=== PATIENT | male | born 1955 | race Caucasian/White ===

== ENCOUNTER 2019-01-31 06:40 | Observation (INO) | payer OTHER ==
[~2019-01-31] VITALS: Ht 172.7 cm; Wt 86.2 kg
--- NOTE | ~2019-01-31 | D ---
[facility] [address] [address] DISCHARGE SUMMARY Name: SHERYL CUNNINGHAM Room #: 215-P [facility] M.R.#: [id number] Admission: 01/31/19 Attend Phys: Serjio Chambers MD Discharge: Date of : 57 Report #: [id number] THIS REPORT FOR: //name// CC: FAM unknown [facility] SUMMARY: The patient is a 63-year-old male who was admitted yesterday for a second attempt an AVNRT ablation. Initially, it was attempted in December 2017. It has been recurrence of his dysrhythmia. Dr. Chambers, the Electrophysiology Service performed. He was unsuccessful in completely ablating this pathway. The patient is in sinus rhythm today with a rate in the 80s. He is voicing no complaints. The recommendation is to start on flecainide 100 b.i.d. I will add 25 mg of Toprol in addition to his atorvastatin and his benazepril. No lifting for 48 hours. No lying in a tub, Jacuzzi for 5 days. He has no complaints. I have discussed this discharge with him and his . DISCHARGE DIAGNOSES: 1. Recurrent AVNRT/SVT with status post attempt, but failed ablation. 2. Hypertension. 3. Hypercholesterolemia. Thank you for assist in the care of this patient. Followup will be scheduled with Dr. Rodarte who is patient's primary mechanical maintenance foreman in 2 weeks. Thank you for allowing us to participate in the care of this patient. By: [id number] /nt
[~2019-01-31 06:40] MED LIST: ASPIRIN325 PO; BENAZEPRIL HCL40 MG PO; LIPITOR 20 MG T20 M1 PO
[2019-01-31 07:02] VITALS: BP 135/65
[2019-01-31 07:14] LABS: ABSOLUTE NEUTROPHILS 3.1 thou/uL (1.4-8.2); BASOPHILS 1.3 % (0.0-2.0); EOSINOPHILS 4.1 % (0.0-3.0); HEMATOCRIT 46.2 % (42.0-52.0); HEMOGLOBIN 15.8 gm/dL (14.0-18.0); LYMPHOCYTES 30.1 % (24.0-44.0); MCH 30.6 pg (26.0-34.0); MCHC 34.2 g/dL (28.0-37.0); MCV 89.4 fL (80.0-100.0); MONOCYTES 11.6 % (1.0-8.0); PLATELET COUNT 254 thou/uL (150-400); POLYS 52.9 % (36.0-66.0); RBC 5.17 mil/uL (4.50-6.00); RDW 12.7 % (10.5-14.5); WBC 5.8 thou/uL (4.0-11.0)
[2019-01-31 07:22] LABS: CALCIUM 9.3 mg/dL (8.5-10.1); POTASSIUM 4.2 mmol/L (3.5-5.1)
[2019-01-31 07:27] LABS: APTT 29.9 Seconds (24.5-32.8); PROTIME 10.8 Seconds (9.3-11.4)
[2019-01-31 07:28] LABS: ALBUMIN 3.7 g/dL (3.4-5.0); TOTAL BILIRUBIN 0.5 mg/dL (<0.1-1.0); TOTAL PROTEIN 6.9 g/dL (6.4-8.2)
[2019-01-31 16:12] VITALS: BP 122/78
--- NOTE | 2019-01-31 18:02 | NUR ---
PT ARRIVED TO UNIT AT APPROX 1540 BY PACU STAFF ACCOMPANIED BY SPOUSE. PT ALERT AND ORIENTED, VSS, DENIES PAIN. O2 SATS WNL ON ROOM AIR, RIGHT AND LEFT GROIN SITES CDI, NO HEMATOMAS. PT REMAINS BEDREST PER ORDERS. PT SEEN BY DR RIVERA. ADMISSION COMPLETE, TELEMETRY SHEET DISCUSSED WITH PT AND SIGNED. COMMUNICATES UNDERSTANDING. TELE PUT ON, ADMISSION STRIP PRINTED. GROIN SITES REMAIN CDI, NO HEMATOMA. CONTINUING TO MONITOR.
[2019-01-31 19:57] VITALS: BP 127/68
[2019-02-01 00:55] VITALS: BP 117/97
[2019-02-01 04:45] VITALS: BP 146/77
--- NOTE | 2019-02-01 05:42 | NUR ---
ASSUMED PT CARE AT 1900. VSS/ PT A&0X4. PT IS STABLE, BOTH GROIN SITE IS CDI. PT SLEPT FOR MOST OF THE NIGHT. NO COMPLAINTS OF PAIN OR DISCOMFORT. SR WITH 1D ON THE MONITOR. PT IS STEADY ON HIS FEET. WILL CONTINUE TO MONITOR PER POC.
[2019-02-01 08:00] VITALS: BP 145/72
[2019-02-01] MEDS ORDERED: TAMBOCOR 100 M100 M1 PO (08:29)
[2019-02-01] MEDS ORDERED: TOPROL XL25 MG PO (08:37)
[2019-02-01 09:05] VITALS: BP 145/72
[2019-02-01 09:22] VITALS: BP 145/72
--- NOTE | 2019-02-01 09:45 | NUR ---
PT CARE ASSUMED APPROX 0700. ASSESSMENT CHARTED. DENIES PAIN AND SOA. VSS. SANJAY GROIN SITES C/D/I. DISCHARGE EDUCATION AND PAPERWORK REVIEWED WITH PT AND SPOUSE. BOTH DENY QUESTIONS OR CONCERNS REGARDING POST HOSPITAL CARE AND EDUCATION. IV OUT, TELE BOX OFF. NURSE ESCORTED PT OUT VIA WHEELCHAIR WITHOUT ISSUE.
--- NOTE | 2019-02-20 12:29 | P ---
[facility] [place] [address] [place] [address] PROCEDURE REPORT Name: SHERYL CUNNINGHAM Room #: 215-P [facility] M.R.#: [id number] Admission: 01/31/19 Attend Phys: Serjio Chambers MD Discharge: 02/01/19 Date of : 57 Report #: [id number] THIS REPORT FOR: //name// CC: FAM unknown Serjio Chambers DATE OF SERVICE: 01/31/2019 PREOPERATIVE DIAGNOSIS: Atrioventricular stefan reentry tachycardia. POSTOPERATIVE DIAGNOSIS: Atrioventricular stefan reentry tachycardia. PROCEDURES PERFORMED: 1. SVT ablation, CPT code 08194. 2. EP with left atrial pacing and recording, CPT code 73841. 3. Program and stimulation pacing after IV drug infusion, CPT code 38487. 4. 3D mapping, CPT code 59907. HISTORY: The patient is a 63-year-old gentleman with a history of SVT, who underwent ablation of typical AV stefan reentrant tachycardia back in 12/2017. At that time, he had AVNRT, SVT with evidence of a VAHV response consistent with typical AV stefan reentrant tachycardia. A total of 4 ablation lesions were performed with the last two lesions demonstrating nice slow junctionals. He recently was in the Emergency Room with recurrent SVT and has recurrent SVT documented on a surveillance system monitor. He is here for repeat ablation. ANESTHESIA: The patient underwent MAC anesthesia with no anesthesia related complications. DESCRIPTION OF PROCEDURE: The patient underwent informed consent. We discussed the details of the procedure including the risks, which include but not limited to bleeding, vascular damage, cardiac perforation, stroke, [place] as well as damage to the poarch conduction system requiring permanent pacemaker. He understood these risks and is willing to proceed. The patient was brought to the EP laboratory in fasting and sedated state, prepped and draped in a sterile fashion. I injected lidocaine at the bilateral groin regions and obtained access to bilateral femoral veins placing an 8 and 6-Burkinan short sheath in the right femoral vein and a 6 and 7-Burkinan short sheath in the left femoral vein. At baseline, the patient was in sinus rhythm with sinus cycle length 930 milliseconds, MN interval 210 milliseconds, QRS duration 90 milliseconds, QT interval 400 milliseconds, AH interval 148 milliseconds, and HV interval 40 milliseconds. Next, atrial pacing was performed and there was evidence of a long AH interval suggestive that there was still a slow pathway. AV block was noted at 400 milliseconds. Next, single atrial extrastimuli were delivered and atrial ERP was noted at 310 milliseconds [facility] [address] [place] [address] PROCEDURE REPORT Name: SHERYL CUNNINGHAM Room #: 215-P [facility] M.R.#: [id number] Admission: 01/31/19 Attend Phys: Serjio Chambers MD Discharge: 02/01/19 Date of : 57 Report #: [id number] at [address] cycle length. There was 3 beats of what appeared to be AVNRT. Next, ventricular pacing was performed and VA block was noted at 370 milliseconds. VA conduction was both midline and decremental. VA ERP was noted at 360 milliseconds at a [address] cycle length. Next, isoproterenol was initiated at 2 mcg per minute and now I could induce SVT with a tachycardia cycle length of 300 milliseconds, a septal VA time of 35 milliseconds. This would last for about 10-20 seconds and would consistently terminate within A. I could not entrain these episodes. Therefore, given these findings, it seems that this was likely a recurrence of his typical AV stefan reentrant tachycardia; although, I could not entrain this. Therefore, I went up with an SR0 and a 4-mm [employer] Serrano ablation catheter and performed 9 initial ablation lesions with no junctionals. I, therefore, at this point, decided to perform some testing and resumed isoproterenol. Of note, throughout the procedure, he was hard to induce but when we would go up to 6 mcg of Isuprel and then let this wash out and he was easily inducible and this was reproducible throughout the case. Therefore, again this looked like AVNRT. I therefore went in and performed several additional ablation lesions and on the ablation lesion #13, I got 19 junctional beats. I had a nice looking slow pathway potential with a W morphology and ADV ratio of about 1-5. I performed the 14th lesion at the same spot. There was no junctional lesions. Therefore, I felt good about this ablation lesion and we decided to perform testing; however, the patient went back into AVNRT quite easily and now it was sustained. I performed several additional ablation lesions, but at this point, I was getting poor kothari. My kothari were only around 5 rodrigues and attempts were at 55 degrees. Therefore, I did exchange to an Agilis sheath and a [employer] ThermoCool ablation catheter and I performed the remainder of my ablation at 30 rodrigues. I tried to target the area where I got the junctionals and I performed multiple ablation lesions, but had no more junctionals. Therefore, after ablation lesion #30, I performed additional testing. Actually at this point, I was unsure of AVNRT was the right diagnosis and therefore, we tried to map of the tachycardia, but this was unsuccessful. Therefore, again we turned on isoproterenol to 6 mcg per minute and then turned it off again and then we were able to induce SVT. At this time, the tachycardia cycle length was 420 milliseconds and I performed ventricular entrainment at 400 milliseconds and I had a nice VAHV response. Therefore, I felt that this was more likely AVNRT again. I performed an additional 9 ablation lesions with no junctionals. At this point, I resumed isoproterenol and we had more difficulty inducing tachycardia, but then as the isoproterenol wore off, we were able to induce AVNRT and demonstrated VAHV response. As such, I performed multiple ablation lesions and I did not know where to further burn. I did perform a few ablation lesions within the coronary sinus ostium, which did not result in any junctionals. At this point, I decided to terminate the procedure. Post-ablation, the patient was in sinus rhythm with sinus cycle length of 600 milliseconds, MN interval 230 milliseconds, QRS duration 85 milliseconds, QT interval 355 milliseconds, AH interval was 125 milliseconds. The HV interval was 43 milliseconds. Fortunately, there was never any compromise to AV stefan conduction throughout the procedure. The patient awoke [address] [address] PROCEDURE REPORT Name: SHERYL CUNNINGHAM Room #: 215-P [facility] Jess Biswas#: [id number] Admission: 01/31/19 Attend Phys: Serjio Chambers MD Discharge: 02/01/19 Date of : 57 Report #: [id number] neurologically and hemodynamically intact. CONCLUSIONS: 1. Unsuccessful ablation of what I believe is typical AV stefan reentrant tachycardia. 2. Normal SA stefan function. 3. Normal AV stefan function. 4. Normal His-Purkinje function. 5. No other inducible arrhythmias on or off isoproterenol. PLAN: The patient will be initiated on flecainide 100 mg b.i.d.: We will treat medically for the foreseeable future, if he has clinical recurrence, I will refer him to a tertiary care center for a potential repeat ablation. <ELECTRONICALLY SIGNED> By: Serjio Chambers MD 02/20/19 [id number] Serjio Chambers MD /nt
== END 2019-02-01 09:47 | disposition home or self-care (01) ==
LOC: CATH 06:40 → EROBS 12:31 → CATH 14:49 → 2N 16:29
PROVIDERS: ADMIT Internal Medicine Cardiovascular Disease
DX: I47.0 Re-entry ventricular arrhythmia (principal); I10 Essential (primary) hypertension; E78.00 Pure hypercholesterolemia, unspecified; Z79.899 Other long term (current) drug therapy
CPT/HCPCS: 62110; 62900; 70005

== ENCOUNTER → 2019-05-27 | Outpatient (CLI) | payer BC ==
[~2019-05-27] MED LIST changes: +TAMBOCOR 100 M100 M1 PO; +TOPROL XL25 MG PO
== END ==
LOC: SJCVCIMAG 10:39
DX: I06.1 Rheumatic aortic insufficiency (principal); I77.819 Aortic ectasia, unspecified site; I25.10 Atherosclerotic heart disease of native coronary artery without angina pectoris; R93.1 Abnormal findings on diagnostic imaging of heart and coronary circulation; I10 Essential (primary) hypertension

== ENCOUNTER → 2020-08-12 | Outpatient (CLI) | payer OTHER | LOC: CAT 14:57 | PROVIDERS: ATTEND Internal Medicine | DX: Z13.6 Encounter for screening for cardiovascular disorders (principal) ==